=== PATIENT | male | born 1995 | race Two or more races ===

== ENCOUNTER 2021-05-16 07:28 | Emergency (ER) | payer SELFPAY ==
[~2021-05-16] VITALS: Ht 180.3 cm; Wt 97.5 kg
[2021-05-16 07:44] VITALS: BP 135/98
[2021-05-16] MEDS ORDERED: KETOROLAC TROMETH 60MG/2ML VIAL IM ONE (08:30)
== END 2021-05-16 08:50 | disposition home or self-care (01) ==
LOC: ER 07:28
DX: K04.7 Periapical abscess without sinus (principal); F17.210 Nicotine dependence, cigarettes, uncomplicated
CPT/HCPCS: 96372; 99283; J1885

== ENCOUNTER 2023-08-28 07:45 | Inpatient (IN) | payer MEDICAID, OTHER ==
[~2023-08-28] VITALS: Ht 180.3 cm; Wt 98.6 kg
[2023-08-28] MEDS: IBUPROFEN 800 MG TAB PO ONE ×2 (08:15→13:49)
[2023-08-28] MEDS: METOCLOPRAMIDE HCL 5MG/ml INJ 2ml VIAL IV ONE (08:38)
[2023-08-28] MEDS: MORPHINE SULFATE INJ 2 MG/ml SYRG IV ONE (08:55)
[2023-08-28] MEDS: HYDROmorphone HCL 2 MG/ML VL/or syr IV ONE (10:05)
[2023-08-28 11:53] VITALS: PULSE 63; RESP 14; O2SAT 92
[2023-08-28] MEDS ORDERED: ACETAMINOPHEN 325 MG TAB PO PRN (12:15)
[2023-08-28] MEDS ORDERED: ceFAZolin 1GM/50ML 50 ML IV ONE ×2 (12:15→20:23)
[2023-08-28 12:51] LABS: Basophils # (auto) 0 10 ^3/uL (0-0.2); Basophils % (auto) 0.3 % (0.0-2.0); Eosinophils # (auto) 0 10 ^3/uL (0-0.8); Eosinophils % (auto) 0.1 % (0.0-7.0); Hematocrit 45.1 % (41.0-53.0); Hemoglobin 15.4 g/dL (13.5-17.5); Lymphocytes # (auto) 0.8 10 ^3/uL (0.4-5.4); Lymphocytes % (auto) 7.8 % (10.0-50.0); Mean Corpuscular Hemoglobin 29.9 pg (28.0-32.0); Mean Corpuscular Hgb Conc. 34.1 g/dL (32.0-36.0); Mean Corpuscular Volume 87.8 fL (80.0-100.0); Monocytes # (auto) 0.3 10 ^3/uL (0-1.3); Monocytes % (auto) 2.6 % (0.0-12.0); Neutrophils % (auto) 89.2 % (37.0-80.0); Red Blood Cells 5.14 10^6/uL (4.5-5.90); Red Cell Distribution Width 13.3 % (11.8-14.3); White Blood Cell 10.1 10^3/uL (4.4-10.8)
[2023-08-28 12:55] LABS: Chloride 103 mmol/L (98-107); Potassium 4.2 mmol/L (3.5-5.1); Sodium 138 mmol/L (136-145)
[2023-08-28 12:56] LABS: Anion Gap 7 (5-15); Carbon Dioxide 28 mmol/L (20-30)
[2023-08-28] MEDS: SODIUM CHLORIDE 0.9% 1,000 ML IV SCH (12:56)
[2023-08-28 12:57] LABS: Calcium 9.8 mg/dL (8.5-10.1)
[2023-08-28] MEDS: ceFAZolin 1GM/50ML 50 ML IV ONE ×2 (12:57→13:53)
[2023-08-28] MEDS: PANTOPRAZOLE 40 MG/10 ML VIAL INJ IV ONE ×2 (12:57→13:53)
[2023-08-28] MEDS: KETOROLAC TROMETH 30 MG/ML 1ML VIAL IV ONE (12:57)
[2023-08-28 13:01] LABS: BUN/Creatinine Ratio 11.3 (10.0-20.0); Blood Urea Nitrogen 12 mg/dL (9-23); Glucose 107 mg/dL (74-106)
[2023-08-28 13:06] LABS: INR 1.07 (0.9-1.15); Prothrombin Time 11.2 sec (9.3-11.8)
[2023-08-28] MEDS: HYDROmorphone HCL 2 MG/ML VL/or syr ONE (13:52)
[2023-08-28] MEDS: KETOROLAC TROMETH 30 MG/ML 1ML VIAL ONE (13:52)
[2023-08-28] MEDS: MORPHINE SULFATE INJ 2 MG/ml SYRG ONE (13:52)
[2023-08-28] MEDS ORDERED: ceFAZolin 1GM/50ML 50 ML IV SCH (14:00)
[2023-08-28] MEDS ORDERED: fentaNYL CITRATE 100 MCG/2 ML VL ONE ×2 (15:17→15:26)
[2023-08-28] MEDS ORDERED: MIDAZOLAM HCL 2MG/2ML 2ml VIAL (1mg/ml) ONE (15:17)
[2023-08-28] MEDS ORDERED: ONDANSETRON HCL 4 MG/2 ML VIAL ONE (15:18)
[2023-08-28] MEDS ORDERED: PROPOFOL 10 MG/ML 20 ML IV ONE (15:26)
[2023-08-28] MEDS ORDERED: LIDOCAINE 2% (LOCAL ANESTH.) PF 5ml SDV ONE (15:26)
[2023-08-28] MEDS ORDERED: HYDROmorphone HCL 2 MG/ML VL/or syr IV PRN (16:00)
[2023-08-28] MEDS ORDERED: ONDANSETRON HCL 4 MG/2 ML VIAL IV ONE (16:00)
[2023-08-28] MEDS: LIDOCAINE 1%-Mpf/Epinephrine 1:200,000 30ml VIAL ONE (16:41)
[2023-08-28] MEDS: BACITRACIN TOP OINT 1 UD PKG TOP ONE (16:41)
[2023-08-28 16:58] VITALS: O2SAT 99
[2023-08-28] MEDS ORDERED: NEOSTIGMINE 1 MG/ML INJ (10mg/10ML VIAL) ONE (17:06)
[2023-08-28] MEDS ORDERED: GLYCOPYRROLATE 0.2 MG/ML 1ML VIAL ONE (17:06)
[2023-08-28] MEDS ORDERED: ROCURONIUM 10MG/ML 10ML VIAL IV ONE (17:14)
[2023-08-28] MEDS: HYDROmorphone HCL 2 MG/ML VL/or syr IV PRN (17:25)
[2023-08-28 18:19] VITALS: O2SAT 97
[2023-08-28] MEDS: MORPHINE SULFATE INJ 2 MG/ml SYRG IV PRN (18:32)
[2023-08-28] MEDS ORDERED: KETOROLAC TROMETH 30 MG/ML 1ML VIAL IV PRN (18:45)
[2023-08-28] MEDS: ceFAZolin 1GM/50ML 50 ML IV SCH (20:32)
[2023-08-29] MEDS ORDERED: HYDROmorphone HCL 2 MG/ML VL/or syr ONE (03:20)
[2023-08-29] MEDS: HYDROmorphone HCL 2 MG/ML VL/or syr IV PRN (03:25)
[2023-08-29] MEDS ORDERED: ceFAZolin 1GM/50ML 50 ML IV ONE (03:28)
[2023-08-29 05:00] VITALS: BP 130/61; PULSE 78; RESP 17; TEMP 98.5; O2SAT 94
[2023-08-29 06:44] LABS: Alanine Aminotransferase 64 U/L (7-40); Alkaline Phosphatase 89 U/L (46-116); Anion Gap 5 (5-15); BUN/Creatinine Ratio 7.4 (10.0-20.0); Blood Urea Nitrogen 8 mg/dL (9-23); Carbon Dioxide 29 mmol/L (20-30); Chloride 105 mmol/L (98-107); Glucose 116 mg/dL (74-106); Potassium 4.2 mmol/L (3.5-5.1); Sodium 139 mmol/L (136-145)
[2023-08-29 06:45] LABS: Albumin 4.3 g/dL (3.2-4.8); Aspartate Aminotransferase 29 U/L (13-40); Bilirubin, Total 0.3 mg/dL (0.2-1.0); Total Protein 6.7 g/dL (5.7-8.2)
[2023-08-29 07:04] LABS: Basophils # (auto) 0 10 ^3/uL (0-0.2); Basophils % (auto) 0.3 % (0.0-2.0); Eosinophils # (auto) 0.1 10 ^3/uL (0-0.8); Eosinophils % (auto) 1.4 % (0.0-7.0); Hematocrit 42.1 % (41.0-53.0); Hemoglobin 14.1 g/dL (13.5-17.5); Lymphocytes # (auto) 2.3 10 ^3/uL (0.4-5.4); Lymphocytes % (auto) 22.9 % (10.0-50.0); Mean Corpuscular Hemoglobin 29.9 pg (28.0-32.0); Mean Corpuscular Hgb Conc. 33.6 g/dL (32.0-36.0); Mean Corpuscular Volume 89.2 fL (80.0-100.0); Monocytes # (auto) 0.6 10 ^3/uL (0-1.3); Monocytes % (auto) 5.9 % (0.0-12.0); Neutrophils # (auto) 7.1 10 ^3/uL (1.6-8.6); Neutrophils % (auto) 69.5 % (37.0-80.0); Nucleated Red Blood Cells % 0.1 %; Red Blood Cells 4.72 10^6/uL (4.5-5.90); Red Cell Distribution Width 13.6 % (11.8-14.3); White Blood Cell 10.2 10^3/uL (4.4-10.8)
[2023-08-29 08:15] VITALS: BP 111/74; PULSE 77; RESP 18; TEMP 98.7; O2SAT 97
[2023-08-29] MEDS: PANTOPRAZOLE 40 MG/10 ML VIAL INJ IV SCH (09:30)
[2023-08-29 12:44] VITALS: BP 122/69; PULSE 69; RESP 17; TEMP 98.7; O2SAT 93
[2023-08-29] MEDS ORDERED: CEPH500C PO (13:32)
[2023-08-29] MEDS ORDERED: HYDR-4795 PO (13:32)
[2023-08-29] MEDS: HYDROcodone-ACET 7.5/325MG TAB PO PRN (16:28)
== END 2023-08-29 17:15 | disposition home or self-care (01) | DRG 483 ==
LOC: ER 07:45 → OVERFLOW 12:15 → WEST WING 18:04
PROVIDERS: ADMIT Nurse Practitioner Family; ATTEND Nurse Practitioner Acute Care
PROC: 0VQC0ZZ Repair Bilateral Testes, Open Approach (ICD-10-PCS; principal; 2023-08-28 15:34)
DX: N44.00 Torsion of testis, unspecified (principal); E66.9 Obesity, unspecified; F17.210 Nicotine dependence, cigarettes, uncomplicated; Z68.30 Body mass index [BMI] 30.0-30.9, adult
CPT/HCPCS: 36415; 71045; 76870; 80048; 80053; 85025; 85610; 96365; 96375; C9113; G0378; J1885; J2001; J2250; J2405; J2704